=== PATIENT | female | born 1970 | race Caucasian/White ===

== ENCOUNTER 2017-12-29 04:08 | Observation (INO) | payer OTHER ==
[2017-12-29] MEDS ORDERED: LEVOFLOXACIN 750MG/150ML D5W 750 MG/150 ML BAG IV STA (04:22)
[2017-12-29] MEDS ORDERED: Sodium Chloride 0.9% 1000 ML 1,000 ML IV STA (04:22)
[2017-12-29] MEDS ORDERED: solu-MEDROL 125 MG IV ONE (04:22)
[2017-12-29] MEDS ORDERED: DUONEB 0.5-3 MG/3 ml Neb IH ONE ×2 (04:22)
[2017-12-29] MEDS ORDERED: PROVENTIL 2.5 MG/3 ML NEB IH ONE ×2 (04:22→04:36)
[2017-12-29] MEDS ORDERED: LEVOFLOXACIN 750MG/150ML D5W 750 MG/150 ML BAG IV ONE (04:28)
[2017-12-29] MEDS ORDERED: Sodium Chloride 0.9% 1000 ML 1,000 ML ONE (04:28)
[2017-12-29] MEDS ORDERED: solu-MEDROL 125 MG ONE (04:28)
--- NOTE | 2017-12-29 04:39 | ERPHSYRPT ---
- History of Present Illness Time Seen by Provider: 12/29/17 04:18 Source: patient Exam Limitations: clinical condition Patient Subjective Stated Complaint: Pt arrives to ER with c/o SOB for past 3 days with cough, vomiting from coughing, epigastric pain, sore ribs, back pain. States has asthma but has ran out of inhaler and does not take nebulizer. Finished Z-pack 10 days ago from Pneumonia in mid November. Has intermittent chills and sweats. Triage Nursing Assessment: Pt wheezing throughout bilaterally with accessory muscle use and appears in distress. Walked in to ER without difficulty. Physician History: PATIENT WITH A HISTORY OF ASTHMA , TYPE 2 DIABETIC, COMPLAINS OF DIFFICULTY BREATHING, NONPRODUCTIVE COUGH AND MARKED EXERTIONAL DYSPNEA. DENIES FEVER OR CHILLS. Timing/Duration: day(s) Activities at Onset: activity Severity of Dyspnea-Max: severe Severity of Dyspnea-Current: severe Possible Cause: occasional episodes Modifying Factors: Improves With: coughing, deep breath, exertion Associated Symptoms: cough, painful breathing International travel in last 2 weeks: No Allergies/Adverse Reactions: haloperidol [From Haldol] Allergy (Intermediate, Verified 12/29/17 04:22) MUSLCES HURT Home Medications: Albuterol Sulfate [Ventolin Hfa] 2 puff OINH Q4-6HPRN PRN 12/29/17 [History] Zolpidem Tartrate [Zolpidem Tartrate] 10 mg PO HS 12/29/17 [History] Hx Tetanus, Diphtheria Vaccination/Date Given: No Hx Influenza Vaccination/Date Given: No Hx Pneumococcal Vaccination/Date Given: No - Review of Systems Constitutional: No Fever, No Chills Eyes: No Symptoms Ears, Nose, & Throat: No Symptoms Respiratory: Cough, No Dyspnea Cardiac: No Symptoms, No Chest Pain, No Edema, No Syncope Abdominal/Gastrointestinal: No Symptoms, No Abdominal Pain, No Nausea, No Vomiting, No Diarrhea Genitourinary Symptoms: No Symptoms, No Dysuria Musculoskeletal: No Symptoms, No Back Pain, No Neck Pain Skin: No Rash Neurological: No Symptoms, No Dizziness, No Focal Weakness, No Sensory Changes Psychological: No Symptoms Endocrine: No Symptoms All Other Systems: Reviewed and Negative - Past Medical History Pertinent Past Medical History: Yes Respiratory History: Asthma Endocrine Medical History: Diabetes Type II Psycho-Social History: Depression Female Reproductive Disorders: Other - Past Surgical History Past Surgical History: Yes Gastrointestinal: Cholecystectomy Female Surgical History: Section - Social History Smoking Status: Never smoker Exposure to second hand smoke: No Drug Use: none Patient Lives Alone: No - Female History Hx Now: No - Nursing Vital Signs Nursing Vital Signs: Initial Vital Signs Temperature 97.5 F 12/29/17 04:09 Pulse Rate 101 H 12/29/17 04:09 Respiratory Rate 26 H 12/29/17 04:09 Blood Pressure 126/108 12/29/17 04:09 O2 Sat by Pulse Oximetry 2 L 12/29/17 04:09 Pain Scale Pain Intensity 0 - Physical Exam General Appearance: moderate distress Eye Exam: PERRL/EOMI Neck Exam: normal inspection, supple Respiratory Exam: chest tenderness, diminished breath sounds, wheezing Cardiovascular/Chest Exam: normal heart sounds, regular rate/rhythm Abdominal/Gastrointestinal Exam: soft, normal bowel sounds Extremity Exam: non-tender, normal range of motion, normal inspection, no calf tenderness, no pedal edema Peripheral Pulses Exam: carotid (R): 2+, carotid (L): 2+, femoral (R): 2+, femoral (L): 2+, dorsalis-pedis (R): 2+ Neurologic Exam: alert, oriented x 3, cooperative Skin Exam: normal color, warm Lymphatic Exam: adenopathy SpO2 Interpretation: normal SpO2: 94 Oxygen Delivery: Nasal Cannula - Radiology Exams Chest X-ray Interpretation: Interpreted by me, Negative (HYPERINFLATION, NO INFILTRATES) Ordered Tests: Active Orders 24 hr Category Date Time Status Up Ad Liliana ROUTINE Activity 12/29/17 05:35 Ordered CO2 Monitoring CONTINUOUS Care 12/29/17 05:35 Ordered Call Admit Doctor for Orders ON ADMISSION Care 12/29/17 05:35 Ordered Wet Wheeler STAT Care 12/29/17 04:23 Active Code Status Order ROUTINE Care 12/29/17 05:34 Ordered EKG-ER Only STAT Care 12/29/17 04:22 Active IV Care Q6H Care 12/29/17 05:34 Ordered IV Insertion STAT Care 12/29/17 04:22 Active Oxygen-ED Only NASAL CANNULA 2 lpm Care 12/29/17 04:[address] in Observation ROUTINE Care 12/29/17 05:34 Ordered Telemetry ROUTINE Care 12/29/17 05:34 Ordered Vital Signs Q4H Care 12/29/17 05:34 Ordered 1800 Calorie ADA Diet 12/29/17 Breakfast Ordered CHEST 1 VIEW (PORTABLE) Stat Exams 12/29/17 04:23 Taken BLOOD CULTURE Stat Lab 12/29/17 05:00 Received CBC W DIFF Stat Lab 12/29/17 04:20 Completed CMP Stat Lab 12/29/17 04:20 Completed D-DIMER QUANTITATION Stat Lab 12/29/17 04:20 Completed Lactic Acid Stat Lab 12/29/17 04:22 Completed PROTIME WITH INR Stat Lab 12/29/17 04:20 Completed TROPONIN Q3H Lab 12/29/17 04:20 Completed TROPONIN Q3H Lab 12/29/17 07:30 Ordered TROPONIN Q3H Lab 12/29/17 10:30 Ordered TROPONIN Q3H Lab 12/29/17 13:30 Ordered TROPONIN Q3H Lab 12/29/17 16:30 Ordered Urine Triage Profile Stat Lab 12/29/17 04:32 Ordered Oxygen NASAL CANNULA 2 lpm RT 12/29/17 05:34 Ordered Respiratory Nebulizer STAT RT 12/29/17 04:24 Completed neb [Respiratory Nebulizer] STAT RT 12/29/17 04:41 Completed Transfer Order Routine Transfer 12/29/17 Ordered Medication Summary Generic Name Dose Route Start Last Admin Trade Name Freq PRN Reason Stop Dose Admin Levofloxacin/Dextrose 750 mg in 150 mls @ 100 mls/hr 12/29/17 04:22 12/29/17 04:46 Levofloxacin 750mg/150ml D5w IV 12/29/17 05:51 100 mls/hr STAT STA Administration Discontinued Medications Generic Name Dose Route Start Last Admin Trade Name Freq PRN Reason Stop Dose Admin Albuterol Sulfate 10 mg 12/29/17 04:22 12/29/17 04:41 Proventil 2.5 Mg/3 Ml Neb IH 12/29/17 04:23 10 mg STAT ONE Administration Albuterol Sulfate Confirm 12/29/17 04:36 Proventil 2.5 Mg/3 Ml Neb Administered 12/29/17 04:37 Dose 10 mg IH .STK-MED ONE Albuterol/Ipratropium Confirm 12/29/17 04:22 Duoneb 0.5-3 Mg/3 Ml Neb Administered 12/29/17 04:23 Dose 3 ml IH .STK-MED ONE Albuterol/Ipratropium 3 ml 04/18/18 04:22 12/29/17 04:26 Duoneb 0.5-3 Mg/3 Ml Neb IH 12/29/17 04:23 3 ml STAT ONE Administration Sodium Chloride 1,000 mls @ 999 mls/hr 12/29/17 04:22 12/29/17 04:46 Sodium Chloride 0.9% 1000 Ml IV 12/29/17 05:22 999 mls/hr .Q1H1M STA Administration Sodium Chloride Confirm 12/29/17 04:28 Sodium Chloride 0.9% 1000 Ml Administered 12/29/17 04:29 Dose 1,000 mls @ ud .ROUTE .STK-MED ONE Levofloxacin/Dextrose Confirm 12/29/17 04:28 Levofloxacin 750mg/150ml D5w Administered 12/29/17 04:29 Dose 750 mg in 150 mls @ ud IV .STK-MED ONE Methylprednisolone Sodium Succinate 125 mg 12/29/17 04:22 12/29/17 04:46 Solu-Medrol 125 Mg IV 12/29/17 04:23 125 mg STAT ONE Administration Methylprednisolone Sodium Succinate Confirm 12/29/17 04:28 Solu-Medrol 125 Mg Administered 12/29/17 04:29 Dose 125 mg .ROUTE .STK-MED ONE Lab/Rad Data: Laboratory Result Diagrams 12/29/17 04:20 12/29/17 04:20 Laboratory Results 12/29/17 12/29/17 12/29/17 Range/Units 04:22 04:20 04:20 WBC (4.0-10.5) K/mm3 RBC (4.1-5.4) M/mm3 Hgb (12.0-16.0) gm/dl Hct (35-47) % MCV (78-100) fl MCH (26-32) pg MCHC (32-36) g/dl RDW (11.5-14.0) % Plt Count (150-450) K/mm3 MPV (6-9.5) fl Gran % (36.0-66.0) % Eos # (Auto) (0-0.5) Absolute Lymphs (auto) (1.0-4.6) Absolute Monos (auto) (0.0-1.3) Lymphocytes % (24.0-44.0) % Monocytes % (0.0-12.0) % Eosinophils % (0.00-5.0) % Basophils % (0.0-0.4) % Absolute Granulocytes (1.4-6.9) Basophils # (0-0.4) PT 12.4 H (9.95-12.35) SECONDS INR 1.11 (0.8-3.0) D-Dimer 429.44 (215-500) ng/mL Sodium (137-145) mmol/L Potassium (3.5-5.1) mmol/L Chloride (98-107) mmol/L Carbon Dioxide (22-30) mmol/L Anion Gap (5-15) MEQ/L BUN (7-17) mg/dL Creatinine (0.52-1.04) mg/dL Estimated GFR ML/MIN Glucose (74-106) mg/dL Lactic Acid 1.2 (0.4-2.0) Calcium (8.4-10.2) mg/dL Total Bilirubin (0.2-1.3) mg/dL AST (14-36) U/L ALT (0-35) U/L Alkaline Phosphatase (38-126) U/L Troponin I < 0.012 (0.000-0.034) ng/mL Serum Total Protein (6.3-8.2) g/dL Albumin (3.5-5.0) g/dL 12/29/17 12/29/17 Range/Units 04:20 04:20 WBC 6.0 (4.0-10.5) K/mm3 RBC 4.94 (4.1-5.4) M/mm3 Hgb 14.6 (12.0-16.0) gm/dl Hct 42.4 (35-47) % MCV 85.8 (78-100) fl MCH 29.6 (26-32) pg MCHC 34.4 (32-36) g/dl RDW 13.8 (11.5-14.0) % Plt Count 307 (150-450) K/mm3 MPV 10.2 H (6-9.5) fl Gran % 71.9 H (36.0-66.0) % Eos # (Auto) 0.07 (0-0.5) Absolute Lymphs (auto) 1.21 (1.0-4.6) Absolute Monos (auto) 0.36 (0.0-1.3) Lymphocytes % 20.2 L (24.0-44.0) % Monocytes % 6.0 (0.0-12.0) % Eosinophils % 1.2 (0.00-5.0) % Basophils % 0.7 (0.0-0.4) % Absolute Granulocytes 4.32 (1.4-6.9) Basophils # 0.04 (0-0.4) PT (9.95-12.35) SECONDS INR (0.8-3.0) D-Dimer (215-500) ng/mL Sodium 139 (137-145) mmol/L Potassium 3.7 (3.5-5.1) mmol/L Chloride 101 (98-107) mmol/L Carbon Dioxide 24 (22-30) mmol/L Anion Gap 17.4 H (5-15) MEQ/L BUN 8 (7-17) mg/dL Creatinine 0.72 (0.52-1.04) mg/dL Estimated GFR > 60.0 ML/MIN Glucose 178 H (74-106) mg/dL Lactic Acid (0.4-2.0) Calcium 10.3 H (8.4-10.2) mg/dL Total Bilirubin 0.50 (0.2-1.3) mg/dL AST 24 (14-36) U/L ALT 18 (0-35) U/L Alkaline Phosphatase 128 H (38-126) U/L Troponin I (0.000-0.034) ng/mL Serum Total Protein 8.6 H (6.3-8.2) g/dL Albumin 4.7 (3.5-5.0) g/dL - Progress Progress: re-examined, unchanged Progress Note: 12/29/17 04:39 ADMINISTERED A DUONEB AEROSOL TX FOLLOWED BY A ALBUTEROL 10MG UNIT DOSE CONTINUOUS AEROSOL TX. IV BOLUS NORMAL SALINE 1 LITER/HR, SOLUMEDROL 125MG IV , AFTER 2 SETS OF BLOOD CULTURES, LEVAQUIN 500MG IVPB, LACTIC ACID 1.6 12/29/17 04:41 Blood Culture(s) Obtained: Yes Antibiotics given: Yes Discussed with Dr.: Ye (DISCUSSED WITH DR YE AT 0525 FOR OBSERVATION) - Departure Time of Disposition: 05:40 (\) Departure Disposition: Observation Clinical Impression: EXACERBATION COPD Condition: Stable Critical Care Time: No Referrals: ESTRADA JACOBSON [Primary Care Provider] -
[2017-12-29 04:40] LABS: BASOPHIL % 0.7 % (0.0-0.4); Basophil (Absolute #) 0.04 (0-0.4); Eosinophil % 1.2 % (0.00-5.0); Eosinophil (Absolute #) 0.07 (0-0.5); Granulocyte Absolute (ANC) 4.32 (1.4-6.9); Granulocytes % 71.9 % (36.0-66.0); Hematocrit 42.4 % (35-47); Hemoglobin 14.6 gm/dl (12.0-16.0); Lymphocyte (Absolute #) 1.21 (1.0-4.6); Lymphocytes % 20.2 % (24.0-44.0); Mean Cell Volume 85.8 fl (78-100); Mean Corpuscular Hemoglobin 29.6 pg (26-32); Mean Corpuscular Hgb Concent. 34.4 g/dl (32-36); Mean Platelet Volume 10.2 fl (6-9.5); Monocyte (Absolute #) 0.36 (0.0-1.3); Platelet Count 307 K/mm3 (150-450); Red Blood Count 4.94 M/mm3 (4.1-5.4); Red Cell Distribution Width 13.8 % (11.5-14.0)
[2017-12-29 05:11] LABS: ALBUMIN 4.7 g/dL (3.5-5.0); ALKALINE PHOSPHATASE 128 U/L (38-126); ANION GAP 17.4 MEQ/L (5-15); BLOOD UREA NITROGEN 8 mg/dL (7-17); CHLORIDE 101 mmol/L (98-107); Calcium 10.3 mg/dL (8.4-10.2); Carbon Dioxide 24 mmol/L (22-30); Creatinine 1 0.72 mg/dL (0.52-1.04); Glucose 178 mg/dL (74-106); Potassium 3.7 mmol/L (3.5-5.1); SGOT/AST 24 U/L (14-36); SGPT/ALT 18 U/L (0-35); SODIUM 139 mmol/L (137-145); Total Protein 8.6 g/dL (6.3-8.2)
[2017-12-29 05:15] LABS: INR 1.11 (0.8-3.0)
[2017-12-29 05:16] LABS: D-DIMER QUANTITATION 429.44 ng/mL (215-500)
[2017-12-29] MEDS ORDERED: DUONEB 0.5-3 MG/3 ml Neb IH PRN (05:34)
[2017-12-29] MEDS ORDERED: Xopenex 1.25 MG/0.5 ML UD NEBULE IH PRN (05:36)
[2017-12-29 06:00] LABS: INFLUENZA A NEGATIVE (NEGATIVE); INFLUENZA B NEGATIVE (NEGATIVE); RESPIRATORY SYNCTIAL VIRUS NEGATIVE (Negative)
[2017-12-29] MEDS ORDERED: solu-MEDROL 125 MG IV SCH (06:00)
[2017-12-29] MEDS: Sodium Chloride 0.9% 1000 ML 1,000 ML IV SCH ×2 (06:50→19:41)
[2017-12-29] MEDS: DUONEB 0.5-3 MG/3 ml Neb IH SCH ×5 (07:06→23:39)
[2017-12-29] MEDS: TYLENOL 325 MG PO PRN ×3 (07:06→19:34)
[2017-12-29] MEDS ORDERED: Ventolin Hfa MDI IH PRN (08:47)
[2017-12-29] MEDS ORDERED: PROVENTIL COMMON CANISTER IH PRN (08:49)
--- NOTE | 2017-12-29 09:04 | HP ---
CHIEF COMPLAINT: Shortness of breath. HISTORY OF PRESENT ILLNESS: The patient is a 47 year-old white female who reports that she has been having intermittent chest pains, both sides of her ribs and to her back over the past few weeks. In the past couple of days she has noticed increasing shortness of breath. She did have problems with asthma in the past and has handheld inhaler but had run out of his medication. She apparently had taken a Z-Dilshad for pneumonia in mid-November as well. PAST MEDICAL/SURGICAL HISTORY: Diabetes mellitus type 2, depression. She had a cholecystectomy and section. HOME MEDICATIONS: Includes Albuterol, Ambien. ALLERGIES: HALDOL. PHYSICAL EXAMINATION: Currently reveals a well nourished, well developed 47 year-old white male in mild distress presently, feeling much better. Her vital signs on admission to the emergency room showed a temperature 97.5F, pulse 101, respiratory rate 26, blood pressure 126/108. Her O2 saturation was 94% on 2 liters nasal cannula. HEENT: Normocephalic, atraumatic. Pupils equal round reactive to light. Extraocular movements intact. Oropharynx is pink and moist. NECK: Supple without lymphadenopathy, thyromegaly or JVD. CHEST: Currently fairly clear. She had been wheezing initially on arrival to the emergency room and received nebulizer treatments including a one hour long treatment. She is currently wheeze-free. HEART: Regular rate and rhythm without murmurs, rubs or gallops. ABDOMEN: Soft. No palpable masses were felt. EXTREMITIES: Without clubbing, cyanosis or edema. NEUROLOGIC: The patient is alert and oriented x3 with no focal deficits noted. LAB DATA AND TESTS: Her labs showed a troponin less than 0.012. Her glucose was 170 nonfasting. BUN 8, creatinine 0.72. Electrolytes were normal. Liver enzymes were normal as well. Her white blood cell count was 6,000, hemoglobin 14.6, PLT count 370,000. She had international normalized ratio of 1.11. D-dimer was not elevated. Lactic acid was in normal range of 1.2. The patient had an EKG showing essentially normal EKG. There is no chest x-ray presently on the chart record. We will check the patient for influenza A, B and respiratory syncytial virus if not already done. ASSESSMENT: She has been placed on Levaquin empirically and has already received Solu-Medrol. We will continue to give her this every six hours basis at 125 mg. She will receive nebulizer treatments on PRN basis for her shortness of breath. She is receiving IV fluid rehydration as well.
--- NOTE | 2017-12-29 09:37 | XRAY ---
Indication: Cough and dyspnea. Comparison: March 31, 2010. Portable chest again demonstrates normal heart and lungs. Bony thorax intact.
[2017-12-29] MEDS: MORPHINE SULFATE 2 MG INJ IV PRN ×2 (09:57→16:23)
[2017-12-29] MEDS: solu-MEDROL 125 MG IV SCH ×2 (12:01→18:08)
[2017-12-29 13:33] LABS: Amphetamine,Urine NEGATIVE (NEGATIVE); Barbiturate,Urine NEGATIVE (NEGATIVE); Benzodiazepine,Urine NEGATIVE (NEGATIVE); Cocaine,Urine NEGATIVE (NEGATIVE); Methadone,Urine NEGATIVE (NEGATIVE); Opiate,Urine POSITIVE (NEGATIVE); PCP,Urine NEGATIVE (NEGATIVE); THC,Urine POSITIVE (NEGATIVE)
[2017-12-29] MEDS ORDERED: Zofran 4 MG/2 ML VIAL IV PRN (15:51)
[2017-12-29] MEDS: NovoLOG Insulin SQ PRN ×2 (16:00→22:19)
[2017-12-29] MEDS: Pepcid 20 MG VIAL IV SCH ×2 (16:00→21:21)
[2017-12-29] MEDS: Phenergan 25 MG INJ IV PRN (21:22)
[2017-12-29] MEDS ORDERED: Ambien 10 MG PO SCH (22:00)
[2017-12-29] MEDS ORDERED: TORAdol 30 mg Injection IV ONE (22:00)
[2017-12-29] MEDS ORDERED: Levofloxacin 500MG/100ML D5W 500 MG/100 ML BAG IV SCH (22:00)
[2017-12-30] MEDS: solu-MEDROL 125 MG IV SCH ×2 (00:12→06:06)
[2017-12-30] MEDS: TYLENOL 325 MG PO PRN (00:23)
[2017-12-30] MEDS: DUONEB 0.5-3 MG/3 ml Neb IH SCH ×2 (03:38→07:11)
[2017-12-30] MEDS: Phenergan 25 MG INJ IV PRN (04:15)
[2017-12-30 05:52] LABS: Basophil (Absolute #) 0.01 (0-0.4); Eosinophil (Absolute #) 0 (0-0.5); Granulocyte Absolute (ANC) 20.45 (1.4-6.9); Granulocytes % 93.8 % (36.0-66.0); Hematocrit 36.3 % (35-47); Hemoglobin 12.3 gm/dl (12.0-16.0); Lymphocyte (Absolute #) 0.84 (1.0-4.6); Lymphocytes % 3.8 % (24.0-44.0); Mean Cell Volume 86.6 fl (78-100); Mean Corpuscular Hemoglobin 29.4 pg (26-32); Mean Corpuscular Hgb Concent. 33.9 g/dl (32-36); Mean Platelet Volume 10.2 fl (6-9.5); Monocyte (Absolute #) 0.53 (0.0-1.3); Monocytes % 2.4 % (0.0-12.0); Platelet Count 313 K/mm3 (150-450); Red Blood Count 4.19 M/mm3 (4.1-5.4); White Blood Count 21.8 K/mm3 (4.0-10.5)
[2017-12-30] MEDS: MORPHINE SULFATE 2 MG INJ IV PRN (06:06)
[2017-12-30 06:09] LABS: ALBUMIN 4.1 g/dL (3.5-5.0); ALKALINE PHOSPHATASE 89 U/L (38-126); ANION GAP 14.7 MEQ/L (5-15); BLOOD UREA NITROGEN 12 mg/dL (7-17); CHLORIDE 108 mmol/L (98-107); Calcium 9.6 mg/dL (8.4-10.2); Carbon Dioxide 23 mmol/L (22-30); Creatinine 1 0.81 mg/dL (0.52-1.04); Glucose 184 mg/dL (74-106); Potassium 3.4 mmol/L (3.5-5.1); SGOT/AST 21 U/L (14-36); SGPT/ALT 15 U/L (0-35); SODIUM 143 mmol/L (137-145); Total Protein 7.2 g/dL (6.3-8.2)
--- NOTE | 2017-12-30 07:13 | PCM.DCORD ---
- Discharge Discharge Date: 12/30/17 Disposition: Home, Self-Care Prescriptions: New Levofloxacin [Levaquin] 500 mg PO DAILY #7 tablet Prednisone 10 mg PO DAILY #18 tablet Albuterol 2.5 mg/3 ml Neb [Proventil 2.5 mg/3 ml Neb] 2.5 mg IH Q4H PRN PRN #90 neb PRN Reason: Shortness Of Breath Continue Zolpidem Tartrate 10 mg PO HS Albuterol Sulfate [Ventolin Hfa] 2 puff OINH Q4-6HPRN PRN PRN Reason: Shortness Of Breath/Wheezing Follow up with: ESTRADA JACOBSON [Primary Care Provider] - 1 Week EUFEMIA VELOZ [ACTIVE STAFF] - 1 Week
[2017-12-30 07:21] VITALS: O2SAT 95
[2017-12-30 08:13] LABS: Slide Review 1 YES
[2017-12-30 08:41] VITALS: BP 135/59; PULSE 123
[2017-12-30] MEDS: Pepcid 20 MG VIAL IV SCH (09:37)
== END 2017-12-30 10:00 | disposition home or self-care (01) ==
LOC: ED 04:08 → MED SURG 06:09
PROVIDERS: ADMIT Family Medicine; ATTEND Family Medicine
DX: J45.901 Unspecified asthma with (acute) exacerbation (principal)
CPT/HCPCS: 36000; 36415; 71045; 80053; 80307; 82962; 83036; 83605; 84484; 85025; 85379; 85610; 87040; 87631; 93005; 93041; 93268; 94150; 94640; 94760; 96360; 96361; 96365; 99285; J1885; J1956; J2270; J2405; J2550; J2930; A9270-GY; G0378

== ENCOUNTER 2019-08-22 08:10 | Day surgery (SDC) | payer MEDICAID ==
[~2019-08-22 08:10] MED LIST: KEFZOL 1 GM/50 ML PREMIX** 1 GM/50 ML IVPB IV SCH; Lactated Ringers 1,000 ML IV SCH
[2019-08-22] MEDS ORDERED: KEFZOL 1 GM/50 ML PREMIX** 1 GM/50 ML IVPB IV ONE (08:18)
[2019-08-22] MEDS ORDERED: Lactated Ringers 1,000 ML IV ONE (08:18)
[2019-08-22] MEDS ORDERED: SUBLIMAZE 100 MCG/2 ML ONE ×2 (10:19→11:02)
[2019-08-22] MEDS ORDERED: DIPRIVAN 200 MG/20 ML IV ONE (10:19)
[2019-08-22] MEDS ORDERED: Quelicin Fliptop 200 MG/10 ML ONE (10:24)
[2019-08-22] MEDS ORDERED: Zofran 4 MG/2 ML VIAL ONE ×2 (10:41→11:21)
[2019-08-22] MEDS ORDERED: TORAdol 30 mg Injection ONE ×2 (10:41→10:58)
[2019-08-22] MEDS ORDERED: Decadron 4 MG INJ ONE (10:41)
[2019-08-22] MEDS ORDERED: DILAUDID 2 MG INJECTION ONE (11:18)
[2019-08-22 13:25] VITALS: BP 166/108; PULSE 81; O2SAT 81
--- NOTE | 2019-08-23 09:02 | OP ---
SURGERY DATE/TIME: 08/22/2019 1023 PREOPERATIVE DIAGNOSIS: Postmenopausal bleeding. POSTOPERATIVE DIAGNOSIS: Postmenopausal bleeding and endometrial polyp. PROCEDURE: Hysteroscopy, D&C with resection of endometrial polyp and subsequent Novasure endometrial ablation. SURGEON: Fidel Bolden D.O. MARKETING PROGRAMS MANAGER: construction tech. ANESTHESIA: General. ESTIMATED BLOOD LOSS: Minimal. COMPLICATIONS: None. INDICATIONS: The risks, benefits, indications and alternatives of the procedure were reviewed with the patient prior to procedure. The patient understood the risk of infection, bleeding, bowel injury, bladder injury, ureteral injury, uterine perforation associated with the surgery. However desires to have this surgery as a possible need to alleviate her current medical condition. DESCRIPTION OF PROCEDURE AND FINDINGS: At this point the patient is taken to the operating room, given general sedation, placed in dorsal lithotomy position. Prepped and draped in usual sterile fashion. A weighted speculum is then placed in the patient's vagina and the anterior lip of the cervix grasped with a single tooth tenaculum. Endocervical dilators are advanced to the endocervical canal as a means to dilate the cervix and at this point a 5 mm hysteroscope was then placed into the endocervical canal where visualization revealed her to have an endometrial polypoid lesion approximately 2 x 2 cm extending from the frontal region more distally towards the endocervical canal. From this point the MyoSure was then used and was placed through the channel of the hysteroscope and was used to resect the polypoid lesion and was done so without complication. There was no bleeding that was noted. The remainder of the uterine cavity appeared to be within normal limits. From this point the hysteroscope was then removed and a curette was then placed into the fundus of the uterus where curettage was performed in all quadrants of the uterus retrieving a mild to moderate amount of tissue. At this point hemostasis was obtained. After removal of the curette, the Novasure was then grasped and was set to a length of 6.5 cm and a width of 4.0 cm and was engaged into the uterine cavity where it was retracted approximately 1 cm from the fundal region and was at this point engaged and the machine was turned for an ablative time of approximately 1 minute time. At the completion of the ablation the Novasure was disengaged and was removed from the uterine cavity. From this point, all subsequent instruments were then removed from the patient's vaginal region. The patient was then taken out of anesthesia and then taken to the recovery room in stable condition. All instruments and laps were accounted for x2.
== END 2019-08-22 12:45 | disposition home or self-care (01) ==
LOC: SDC 08:10
PROVIDERS: ATTEND Obstetrics & Gynecology
DX: N95.0 Postmenopausal bleeding (principal); N84.0 Polyp of corpus uteri
CPT/HCPCS: 36415; 58563; 81025; 88305; J0330; J0690; J1100; J1170; J1885; J2405; J2704; J3010